=== PATIENT | female | born 1955 | race African-American/Black ===

== ENCOUNTER 2022-05-24 15:02 | Emergency (ER) | payer MEDICAID, MEDICARE ==
[~2022-05-24] VITALS: Ht 172.7 cm; Wt 60.0 kg
[2022-05-24] MEDS ORDERED: DIAZEPAM 5 MG TABLET PO ONE (15:30)
[2022-05-24] MEDS ORDERED: ACETAMINOPHEN 325MG TABLET PO ONE (15:30)
[2022-05-24 15:50] LABS: BASOPHILS % 0.6 % (0.0-2.0); EOSINOPHILS % 0.3 % (0.0-5.0); HEMATOCRIT. 39.1 % (36.0-48.0); HEMOGLOBIN. 13.4 g/dL (12.0-16.0); LYMPHOCYTES % 22.2 % (20.0-50.0); MEAN CORPUSCULAR HEMOGLOBIN 30.9 pg (28.0-32.0); MEAN CORPUSCULAR VOLUME 90.2 fL (81.0-99.0); MEAN PLATELET VOLUME 6.6 fl (7.4-10.4); MONOCYTES % 5.5 % (2.0-8.0); NEUTROPHILS % 71.4 % (40.0-76.0); PLATELET 289 x1000/uL (130-400); RED BLOOD CELL COUNT 4.33 mill/uL (4.2-5.4); RED CELL DISTRIBUTION WIDTH 13.3 % (11.6-14.6)
[2022-05-24 16:00] LABS: CHLORIDE 104 mEq/L (98-107)
[2022-05-24] MEDS ORDERED: POTASSIUM CHLORIDE 20MEQ TABLET SR PO ONE (16:15)
[2022-05-24] MEDS: LIDOCAINE 5% PATCH TOP SCH ×3 (16:24→20:03)
[2022-05-24] MEDS ORDERED: KETOROLAC 30MG/ML VIAL IV ONE (17:45)
[2022-05-24] MEDS ORDERED: CYCLOBENZAPRINE 10MG TABLET PO ONE (19:30)
[2022-05-24] MEDS ORDERED: LIDOCAINE 5% PATCH TOP SCH (20:15)
[2022-05-24] MEDS ORDERED: CYCL10TA21 MT (20:15)
[2022-05-24] MEDS ORDERED: LIDO1ADH23 TP (20:16)
[2022-05-24 21:02] VITALS: BP 151/71
== END 2022-05-24 21:12 | disposition home or self-care (01) ==
LOC: ER 15:02
DX: M54.50 Low back pain, unspecified (principal); R07.89 Other chest pain; I10 Essential (primary) hypertension
CPT/HCPCS: 36415; 71045; 80053; 83735; 84484; 85025; 85379; 96374; 99283; J1885